=== PATIENT | male | born 1975 | race Asian ===

== ENCOUNTER 2017-10-06 08:37 | Outpatient (CLI) | payer OTHER ==
[2017-10-06] VITALS (7 sets, daily range): BP systolic 116–134; BP diastolic 72–87; PULSE 57–73; TEMP 98
[~2017-10-06] VITALS: Ht 175.3 cm; Wt 80.1 kg
[~2017-10-06 08:37] MED LIST: LAMISIL250 M1 PO; NAPROSYN500 MG PO; ROBAXIN 50500 MG/TAB PO
[2017-10-06 12:06] LABS: CEREBROSPINAL TUBE #3; CSF APPEARANCE CLEAR; CSF COLOR COLORLESS
[2017-10-06 12:09] LABS: CSF POLYMORPHONUCLEAR 0 % (0-6)
[2017-10-09 11:04] LABS: ALBUMIN CSF 24.3 mg/dL (<=27.0); CSF IGG/ALBUMIN 0.09 (<=0.21); CSF,IGG 2.3 mg/dL (<=8.1)
[2017-10-09 11:16] LABS: CSF-IGG INDEX 0.36 (<=0.85); IGG/ALBUMIN SERUM 0.25 (<=0.40)
== END 2017-10-06 13:06 | disposition home or self-care (01) ==
LOC: COL.RAD 08:37
PROVIDERS: Psychiatry & Neurology Neurology
DX: G37.8 Other specified demyelinating diseases of central nervous system (principal)